=== PATIENT | female | born 1980 | race Two or more races ===

== ENCOUNTER 2021-08-31 01:13 | Inpatient (IN) | payer OTHER ==
[2021-08-31] VITALS (10 sets, daily range): BP systolic 104–136; BP diastolic 68–82
[~2021-08-31] VITALS: Ht 167.6 cm; Wt 53.1 kg
[2021-08-31] MEDS ORDERED: PANTOPRAZOLE 40 MG VIAL ONE (02:16)
[2021-08-31] MEDS ORDERED: ONDANSETRON HCL/PF 4 MG/2 ML VIAL ONE ×4 (02:17→13:29)
[2021-08-31] MEDS ORDERED: IV NS 0.9% 1,000 ML BAG IV ONE (02:30)
[2021-08-31] MEDS ORDERED: PANTOPRAZOLE 40 MG VIAL IV ONE (02:30)
[2021-08-31] MEDS ORDERED: ONDANSETRON HCL/PF 4 MG/2 ML VIAL IVP ONE (02:30)
--- NOTE | 2021-08-31 02:47 | NUR ---
PATIENT TAKEN TO CT
--- NOTE | 2021-08-31 02:57 | NUR ---
PATIENT RETURNED FROM CT
[2021-08-31 03:11] LABS: BASOPHILS % (AUTO) 0.1 % (0.0-2.0); EOSINOPHILS % (AUTO) 0.1 % (0.0-6.0); HEMATOCRIT 41 % (33-45); HEMOGLOBIN 13.8 g/dL (11.5-14.8); LYMPHOCYTES # (AUTO) 1.9 K/uL (0.8-4.8); LYMPHOCYTES % (AUTO) 8.5 % (20.0-44.0); MEAN CORPUSCULAR HGB CONC 33 g/dl (31.0-36.0); MEAN CORPUSCULAR VOLUME 97 fL (82-100); MONOCYTES # (AUTO) 1.6 K/uL (0.1-1.30); MONOCYTES % (AUTO) 7.4 % (2.0-12.0); NEUTROPHILS # (AUTO) 18.7 K/uL (1.8-8.9); NEUTROPHILS % (AUTO) 83.9 % (43.0-81.0); PLATELET COUNT (AUTO) 564 K/uL (150-450); RED BLOOD CELL COUNT(AUTO) 4.27 MIL/uL (4.0-5.2); WHITE BLOOD COUNT (AUTO) 22.2 K/uL (4.3-11.0)
[2021-08-31 03:26] LABS: ALBUMIN 4.7 g/dL (3.4-5.0); BILIRUBIN,DIRECT 0.3 mg/dL (0.0-0.2); BILIRUBIN,TOTAL 0.7 mg/dL (0.2-1.0); CALCIUM, SERUM 9.3 mg/dL (8.5-10.1); CREATININE 1.2 mg/dL (0.6-1.3); POTASSIUM 4.5 mmol/L (3.5-5.1)
[2021-08-31] MEDS ORDERED: INSULIN REGULAR, HUMAN 100 UNIT/ML 10 ML VIAL ONE (03:57)
[2021-08-31] MEDS ORDERED: MAG HYDROX/AL HYDROX/SIMETH 30 ML UDC ONE (03:57)
[2021-08-31] MEDS ORDERED: LIDOCAINE VISCOUS 2% UD 15 ML UDC ONE (03:57)
[2021-08-31] MEDS ORDERED: MAG HYDROX/AL HYDROX/SIMETH 30 ML UDC PO ONE (04:00)
[2021-08-31] MEDS ORDERED: LIDOCAINE VISCOUS 2% UD 15 ML UDC MM ONE (04:00)
[2021-08-31] MEDS ORDERED: ONDANSETRON HCL/PF 4 MG/2 ML VIAL IV ONE (04:00)
[2021-08-31] MEDS ORDERED: INSULIN REGULAR, HUMAN 100 UNIT/ML 10 ML VIAL IV ONE (04:00)
--- NOTE | 2021-08-31 04:07 | NUR ---
SPOKE WITH ROB BUTCHER [employer] FOR CLINICALS. PT IS APPROVED TO STAY.
[2021-08-31 04:28] LABS: ABG BASE EXCESS -23.9 mmol/L; ABG PCO2 18.8 mmHg (35.0-45.0); ABG PH 7.041 (7.350-7.450); ABG PO2 125.6 mmHg (75.0-100.0); COHb 0.3 % (0.5-1.5); MetHb 0.2 % (0.0-1.5); O2Hb 96.6 % (94.0-97.0); SITE, ABG Left Radial; VENT MODE, BG RA
[2021-08-31] MEDS ORDERED: INSULIN REGULAR, HUMAN 100 UNIT in IV NS 0.9% 99 ML IV PRN ×2 (04:30→05:00)
[2021-08-31] MEDS ORDERED: MAG HYDROX/AL HYDROX/SIMETH 30 ML UDC PO PRN (05:00)
[2021-08-31] MEDS ORDERED: MAGNESIUM HYDROXIDE 30 ML UDC PO PRN (05:00)
[2021-08-31] MEDS ORDERED: ONDANSETRON HCL/PF 4 MG/2 ML VIAL IVP PRN ×2 (05:00→13:30)
[2021-08-31] MEDS ORDERED: METOCLOPRAMIDE HCL 10 MG/2 ML VIAL IV STA (05:55)
[2021-08-31] MEDS ORDERED: METOCLOPRAMIDE HCL 10 MG/2 ML VIAL ONE (05:56)
[2021-08-31] MEDS ORDERED: METOCLOPRAMIDE HCL 10 MG/2 ML VIAL IV SCH (06:00)
--- NOTE | 2021-08-31 07:40 | NUR ---
PT SITTING IN BED, ACTIVE VOMITING. AAOX4, BREATHING EVEN AND UNLABORED. WILL ADMINISTER NAUSEA MEDICATION
[2021-08-31] MEDS ORDERED: PANTOPRAZOLE 40 MG TABLET.DR PO ONE (07:41)
[2021-08-31] MEDS: PANTOPRAZOLE 40 MG TABLET.DR PO SCH (07:43)
[2021-08-31] MEDS ORDERED: ACETAMINOPHEN 325 MG TABLET ONE (10:02)
[2021-08-31] MEDS: ACETAMINOPHEN 325 MG TABLET PO PRN (10:09)
--- NOTE | 2021-08-31 11:22 | NUR ---
PATIENT IN BED AWAKE, HOOKED TO MONITOR, VSS, HOOKED TO INUSLIN DRIP AT 5.7 U/HR. WILL CONTINUE TO MONITOR PATIENT.KEPT WARM AND COMFORTABLE.
--- NOTE | 2021-08-31 11:53 | NUR ---
RECEIVED AN ORDER OF BMP FROM DR YANEZ. THE ORDER IS READ BACK, VERIFIED. NOTED AND CARRIED OUT.
[2021-08-31] MEDS: IV D5/0.45 NACL 1,000 ML IV PRN ×3 (13:27→22:12)
--- NOTE | 2021-08-31 14:00 | NUR ---
REPORT GIVEN TO NURSE RODRIGUEZ
[2021-08-31 14:11] LABS: CALCIUM, SERUM 8.7 mg/dL (8.5-10.1); POTASSIUM 4.3 mmol/L (3.5-5.1)
--- NOTE | 2021-08-31 14:15 | NUR ---
THE PATIENT IS TRANSFERED TO ROOM 252 INSTABLE CONDITION AND PER POLICY.
--- NOTE | 2021-08-31 14:20 | NUR ---
RN/ICU-ADMITTED THIS 40 Y/O FEMALE FROM ER BY SELVIN, ACCOMPANIED BY ER STAFF. DX.DKA. ROUTINE ICU ADMISSION CARE INITIATED. AWAKE, ALERT, EXPRESSIVE OF NEEDS.ON INSULIN DRIP AT 2UNITS/HR PER PROTOCOL USING FORMULA BSX2/100. PT IS A FULL CODE. DENIES PAIN OR RESPIRATORY DISTRESS.
[2021-08-31] MEDS: BLOOD SUGAR DIAGNOSTIC 1 EACH STRIP IN SCH ×10 (15:10→23:08)
[2021-08-31] MEDS ORDERED: POTASSIUM PHOSPHATE MM 15 MMOL in IV NS 0.9% 250 ML IV SCH (16:00)
[2021-08-31] MEDS ORDERED: Sodium Phosphate 30 MMOL in IV NS 0.9% 250 ML IV SCH (17:00)
--- NOTE | 2021-08-31 19:00 | NUR ---
ARCHITECTURAL ADMINISTRATIVE ASSISTANT NOTE RECEIVED PATIENT IN BED RESTING ALERT ORIENTED X4 VERBALLY RESPONSIVE ON ROOM AIR O2:100% IV SITE IS ON LAC AND RAC INTACT PATENT ON INSULIN DRIP 2.2 UNIT/HR AND D51/2NS 125CC/HR AND SODIUM POTASSIUM 43 CC/HR,KEEP CALL LIGHT WITHIN REACH,BED IN LOW POSITION AND LOCKED,CONTINUE TO MONITOR.
[2021-08-31 19:13] LABS: CALCIUM, SERUM 8.6 mg/dL (8.5-10.1); POTASSIUM 4.2 mmol/L (3.5-5.1)
[2021-08-31 23:53] LABS: CALCIUM, SERUM 8.2 mg/dL (8.5-10.1); CREATININE 0.9 mg/dL (0.6-1.3); POTASSIUM 3.4 mmol/L (3.5-5.1)
[2021-09-01] VITALS (13 sets, daily range): BP systolic 125–147; BP diastolic 70–90
--- NOTE | 2021-09-01 | NUR ---
RN NOTE BLOOD SUGAR IS [address] CRUMP HE ORDERED HOLD INSULIN DRIP,BMP ONE HOUR LATER NOTED AND CARRIED OUT.
[2021-09-01] MEDS: BLOOD SUGAR DIAGNOSTIC 1 EACH STRIP IN SCH ×5 (00:01→12:00)
[2021-09-01] MEDS ORDERED: IV NS 0.9% 1,000 ML IV PRN (01:00)
[2021-09-01 02:10] LABS: CALCIUM, SERUM 8.2 mg/dL (8.5-10.1); CREATININE 0.8 mg/dL (0.6-1.3); POTASSIUM 3.4 mmol/L (3.5-5.1)
--- NOTE | 2021-09-01 02:35 | NUR ---
RN NOTE BMP DONE RESULTS REPORTED TO DR CRUMP HE ORDERED DIET CCHO, AND ACHS ACCUCHECK ON MILD INSULIN SLIDING SCALE NOTED AND CARRIED OUT.
[2021-09-01] MEDS ORDERED: DEXTROSE 50%-WATER 50 ML DISP.SYRIN IV PRN (03:00)
[2021-09-01] MEDS ORDERED: INSULIN REGULAR, HUMAN 100 UNIT/ML 3 ML VIAL SQ PRN (03:00)
[2021-09-01] MEDS: ACETAMINOPHEN 325 MG TABLET PO PRN (03:48)
[2021-09-01 05:29] LABS: EOSINOPHILS % (AUTO) 0.2 % (0.0-6.0); HEMATOCRIT 35 % (33-45); LYMPHOCYTES # (AUTO) 1.9 K/uL (0.8-4.8); LYMPHOCYTES % (AUTO) 9.2 % (20.0-44.0); MEAN CORPUSCULAR HGB CONC 34 g/dl (31.0-36.0); MEAN CORPUSCULAR VOLUME 91 fL (82-100); MONOCYTES # (AUTO) 1.8 K/uL (0.1-1.30); MONOCYTES % (AUTO) 8.6 % (2.0-12.0); NEUTROPHILS # (AUTO) 17.3 K/uL (1.8-8.9); PLATELET COUNT (AUTO) 455 K/uL (150-450); RED BLOOD CELL COUNT(AUTO) 3.87 MIL/uL (4.0-5.2); WHITE BLOOD COUNT (AUTO) 21.1 K/uL (4.3-11.0)
[2021-09-01 05:47] LABS: ALBUMIN 3.4 g/dL (3.4-5.0); CALCIUM, SERUM 8.4 mg/dL (8.5-10.1); CREATININE 0.9 mg/dL (0.6-1.3); MAGNESIUM 1.9 mg/dL (1.8-2.4); PHOSPHORUS 2.4 mg/dL (2.5-4.9); POTASSIUM 3.4 mmol/L (3.5-5.1); TOTAL PROTEIN, SERUM 6.9 g/dL (6.4-8.2)
--- NOTE | 2021-09-01 06:29 | NUR ---
RN NOTE PATIENT REMAINS ON ALERT ORIENTED X4 VERBALLY RESPONSIVE ON ROOM AIR O2:100% IV SITE IS ON RIGHT AC INTACT PATENT IV NS RUNNING 75CC/HR,OFF OF INSULIN DRIP,AMBULATORY CONTINET BOWEL/BLADDER,KEPT CLEAN AND DRY ALL THE TIME,ENDORSE NEXT COMING SHIFT FOR CONTINUATION OF CARE.
--- NOTE | 2021-09-01 07:00 | NUR ---
FAMILY SERVICES WORKER NOTE RECEIVED PATIENT ON BED, ALERT ORIENTED X4 VERBALLY RESPONSIVE ON ROOM AIR , O2 SAT WNL, IV SITE IS ON RAC INTACT , CLEAN AND DRY, NO DISTRESS NOTED, CALL LIGHT WITHIN EASY REACH,BED IN LOW POSITION AND LOCKED,CONTINUE TO MONITOR.
[2021-09-01] MEDS ORDERED: ATOR10TA PO (07:41)
[2021-09-01] MEDS ORDERED: LEVO125T8 PO (07:41)
[2021-09-01] MEDS ORDERED: CHOL200013 PO (07:41)
[2021-09-01] MEDS ORDERED: SERT50TA12 PO (07:41)
[2021-09-01] MEDS: PANTOPRAZOLE 40 MG TABLET.DR PO SCH (07:42)
[2021-09-01] MEDS ORDERED: POTASSIUM CHLORIDE 20 MEQ TAB.PRT.SR PO SCH (13:00)
--- NOTE | 2021-09-01 13:12 | NUR ---
RN NOTES DISCHARGE INSTRUCTION GIVEN TO PT , VERBALIZES UNDERSTANDING, IV SITE D/ESCOBAR, PT STATED WANTS TO GO HOME TED. REFUSED WHEEL CHAIR , LEFT THE FLOOR AMBULATORY IN STABLE CONDITION, ACCOMPANIED BY STAFF MEMBER.
== END 2021-09-01 14:24 | disposition home or self-care (01) | DRG 420 ==
LOC: ER 01:16 → TRANSITION 05:24 → ICU 13:51
DX: E11.10 Type 2 diabetes mellitus with ketoacidosis without coma (principal); D72.829 Elevated white blood cell count, unspecified; D75.839 Thrombocytosis, unspecified; Z20.822 Contact with and (suspected) exposure to COVID-19; F10.10 Alcohol abuse, uncomplicated
CPT/HCPCS: 36415; 36600; 80048-TC; 80053-TC; 80076-TC; 82010-TC; 82962-TC; 83690-TC; 83735-TC; 84100-TC; 85025-TC; 85730-TC; 86850-TC; 87081-TC; A9563; C9113; C9803; G0378; J1815; J2405; J2765; J3490; J7030; J7050

== ENCOUNTER 2025-05-14 16:58 | Inpatient (IN) | payer OTHER ==
[~2025-05-14] VITALS: Ht 170.2 cm; Wt 66.3 kg
[~2025-05-14 16:58] MED LIST: ATOR10TA PO; CHOL200013 PO; LEVO125T8 PO; SERT50TA12 PO
[2025-05-14] MEDS ORDERED: ONDANSETRON HCL/PF 4 MG/2 ML VIAL ONE ×2 (17:06→20:27)
[2025-05-14] MEDS: IV NS 0.9% 1,000 ML BAG IV ONE (17:14)
[2025-05-14] MEDS: ONDANSETRON HCL/PF 4 MG/2 ML VIAL IVP ONE ×2 (17:15→20:30)
[2025-05-14] MEDS: IV LR 1000 ML 1,000 ML BAG IV ONE (17:15)
[2025-05-14 17:21] LABS: PLATELET COUNT (AUTO) 571 K/uL (150-450); RED BLOOD CELL COUNT(AUTO) 4.32 MIL/uL (4.0-5.2); RED CELL DISTRIBUTION WIDTH 13.1 % (11.5-15.0); WHITE BLOOD COUNT (AUTO) 27.0 K/uL (4.3-11.0)
[2025-05-14 17:23] LABS: FRACTIONATED INSPIRED OXYGEN-V 28.0 %; SITE, VBG VBG - N/A; VBG BASE EXCESS -23.6 mmol/L (-2.0-3.0); VBG HCO3 5.0 mmol/L (22.0-29.0); VBG MetHb 0.2 % (0.5-1.5); VBG OXYGEN SATURATION 84.1 % (60.0-85.0); VBG PCO2 18.3 mmHg (38.0-54.0); VBG PH 7.055 (7.320-7.430); VBG PO2 57.3 mmHg (23.0-48.0); VBG TOTAL HEMOGLOBIN 14.7 G/dL (12.0-16.0)
[2025-05-14 17:33] LABS: ASPARTATE AMINOTRANSFERASE 26.0 U/L (15-37); CALCIUM, SERUM 9.0 mg/dL (8.5-10.1); CREATININE 1.2 mg/dL (0.6-1.3); SODIUM SERUM 136.0 mmol/L (136-145); TOTAL PROTEIN, SERUM 9.1 g/dL (6.4-8.2); UREA NITROGEN, BLOOD 41.0 mg/dL (7-18)
[2025-05-14 17:37] LABS: ACETONE, SERUM MODERATE (NEGATIVE)
[2025-05-14 17:38] LABS: PREGNANCY TEST SERUM QUAN 0 mIU/mL (0-6)
[2025-05-14] MEDS ORDERED: INSU100I30 SQ (18:19)
[2025-05-14] MEDS ORDERED: ATOR40TA PO (18:19)
[2025-05-14] MEDS ORDERED: ESCI20TA PO (18:19)
[2025-05-14] MEDS ORDERED: INSU100V8 SQ (18:19)
[2025-05-14] MEDS: IV PREMIX NS +20MEQ KCL 1 L IV PRN (18:22)
[2025-05-14] MEDS: INSULIN REGULAR, HUMAN 100 UNITS in IV NS 0.9% 100 ML IV PRN (18:22)
[2025-05-14 18:50] LABS: CALCIUM, SERUM 8.7 mg/dL (8.5-10.1); CREATININE 1.1 mg/dL (0.6-1.3); PHOSPHORUS 4.8 mg/dL (2.5-4.9); SODIUM SERUM 136.0 mmol/L (136-145); UREA NITROGEN, BLOOD 41.0 mg/dL (7-18)
[2025-05-14] MEDS ORDERED: INSULIN REGULAR, HUMAN 100 UNIT in IV NS 0.9% 99 ML IV PRN (19:00)
[2025-05-14] MEDS ORDERED: Z GUARD REMEDY 4 OZ OINT TP PRN (19:00)
[2025-05-14 19:36] LABS: EOSINOPHILS % (MANUAL) 1 % (0-4); LYMPHOCYTES % (MANUAL) 5 % (16-48); MONOCYTES % (MANUAL) 7 % (0-11.0); NEUTROPHILS % (MANUAL) 87 (42-76); PLATELET ESTIMATE ADEQU
[2025-05-14 19:48] LABS: APPEARANCE,URINE CLEAR (CLEAR); BLOOD, URINE TRACE-INTA Ery/uL (NEGATIVE); LEUKOCYTE ESTERASE ,URINE NEGATIVE (NEGATIVE); NITRITE, URINE NEGATIVE (NEGATIVE); UGLUCOSE 3+ mg/dL (NEGATIVE)
[2025-05-14 20:03] LABS: ADD URINE CULTURE NO
[2025-05-14 20:16] LABS: CALCIUM, SERUM 9.1 mg/dL (8.5-10.1); CREATININE 1.3 mg/dL (0.6-1.3); SODIUM SERUM 138.0 mmol/L (136-145); UREA NITROGEN, BLOOD 23.0 mg/dL (7-18)
[2025-05-14 20:20] LABS: PHOSPHORUS 3.7 mg/dL (2.5-4.9)
[2025-05-14] MEDS ORDERED: HYDROMORPHONE 1 MG/1 ML DISP.SYRIN ONE (20:27)
[2025-05-14] MEDS: HYDROMORPHONE 1 MG/1 ML DISP.SYRIN IV ONE (20:30)
[2025-05-14] MEDS ORDERED: SODIUM BICARBONATE SYR 50 MEQ/50 ML DISP.SYRIN ONE (20:33)
[2025-05-14] MEDS: IV NS 0.9% 1,000 ML IV ONE (20:36)
[2025-05-14] MEDS: SODIUM BICARBONATE SYR 50 MEQ/50 ML DISP.SYRIN IV ONE (20:41)
[2025-05-14] MEDS: IV 1/2NS 1000 ML 1,000 ML IV PRN (21:08)
[2025-05-14 22:04] LABS: CALCIUM, SERUM 7.9 mg/dL (8.5-10.1); CREATININE 1.2 mg/dL (0.6-1.3); SODIUM SERUM 141.0 mmol/L (136-145); UREA NITROGEN, BLOOD 19.0 mg/dL (7-18)
[2025-05-14 22:08] LABS: PHOSPHORUS 2.1 mg/dL (2.5-4.9)
[2025-05-14 22:19] VITALS: BP 153/85; O2SAT 99
[2025-05-14] MEDS: ONDANSETRON HCL/PF 4 MG/2 ML VIAL IVP PRN (22:42)
[2025-05-14] MEDS: INSULIN REGULAR, HUMAN 100 UNIT in IV NS 0.9% 99 ML IV PRN (22:50)
[2025-05-14] MEDS: METRONIDAZOLE 500MG/ NS 100ML 500 MG in PREMIX 1 EA IV SCH (22:58)
[2025-05-14 23:00] VITALS: BP 159/79; O2SAT 99
[2025-05-14] MEDS: METRONIDAZOLE 500MG/ NS 100ML 100 ML IV ONE (23:18)
[2025-05-14] MEDS: CEFTRIAXONE 1GM BAG (ER ONLY) 100 ML IV ONE (23:33)
[2025-05-14] MEDS: BLOOD SUGAR DIAGNOSTIC 1 EACH STRIP IN SCH (23:34)
[2025-05-15] VITALS (26 sets, daily range): BP systolic 101–163; BP diastolic 61–92; TEMP 97.7–99.2; O2SAT 95–100
[2025-05-15] MEDS: CEFTRIAXONE 2 G in IV D5W 100 ML IV SCH (00:24)
[2025-05-15 02:19] LABS: CALCIUM, SERUM 8.0 mg/dL (8.5-10.1); CREATININE 1.0 mg/dL (0.6-1.3); SODIUM SERUM 143.0 mmol/L (136-145); UREA NITROGEN, BLOOD 15.0 mg/dL (7-18)
[2025-05-15 02:55] LABS: PHOSPHORUS 1.9 mg/dL (2.5-4.9)
[2025-05-15] MEDS ORDERED: METRONIDAZOLE 500MG/ NS 100ML 500 MG in PREMIX 1 EA IV SCH (07:00)
[2025-05-15] MEDS ORDERED: LEVOTHYROXINE INJ 500 MCG VIAL IV SCH (07:30)
[2025-05-15 07:32] LABS: PLATELET COUNT (AUTO) 417 K/uL (150-450); RED BLOOD CELL COUNT(AUTO) 3.40 MIL/uL (4.0-5.2); RED CELL DISTRIBUTION WIDTH 12.9 % (11.5-15.0); WHITE BLOOD COUNT (AUTO) 20.6 K/uL (4.3-11.0)
[2025-05-15 07:42] LABS: CALCIUM, SERUM 7.7 mg/dL (8.5-10.1); CREATININE 1.0 mg/dL (0.6-1.3); PHOSPHORUS 1.7 mg/dL (2.5-4.9); SODIUM SERUM 134.0 mmol/L (136-145); UREA NITROGEN, BLOOD 11.0 mg/dL (7-18)
[2025-05-15] MEDS: METRONIDAZOLE 500MG/ NS 100ML 500 MG in PREMIX 1 EA IV SCH (08:29)
[2025-05-15] MEDS: PANTOPRAZOLE 40 MG VIAL IV SCH (08:39)
[2025-05-15] MEDS: LEVOTHYROXINE INJ 100 MCG VIAL IV SCH (08:39)
[2025-05-15] MEDS: POTASSIUM CHLORIDE 10 MEQ/50 ML PREMIXED IVPB FOR PERIPHERAL LINE IV ONE (08:53)
[2025-05-15] MEDS ORDERED: Sodium Phosphate 15 MMOL in IV NS 0.9% 245 ML IV SCH (09:00)
[2025-05-15] MEDS: ACETAMINOPHEN 325 MG TABLET PO PRN (09:36)
[2025-05-15] MEDS ORDERED: POTASSIUM PHOSPHATE MM 15 MMOL in IV NS 0.9% 250 ML IV SCH ×2 (10:00→19:00)
[2025-05-15 10:07] LABS: CALCIUM, SERUM 7.8 mg/dL (8.5-10.1); CREATININE 0.9 mg/dL (0.6-1.3); SODIUM SERUM 133.0 mmol/L (136-145); UREA NITROGEN, BLOOD 10.0 mg/dL (7-18)
[2025-05-15] MEDS: Potassium Chloride 20 MEQ in IV D5/0.45 NACL 1,000 ML IV PRN (11:03)
[2025-05-15] MEDS: POTASSIUM PHOSPHATE MM 7.5 MMOL in IV NS 0.9% 100 ML IV SCH ×2 (11:37→20:29)
[2025-05-15 11:57] LABS: IRON, SERUM 55 ug/dl (50-175)
[2025-05-15] MEDS ORDERED: MORPHINE SULFATE INJ 2 MG/ML DISP.SYRIN IV PRN (15:00)
[2025-05-15 15:40] LABS: CALCIUM, SERUM 8.3 mg/dL (8.5-10.1); CREATININE 0.9 mg/dL (0.6-1.3); SODIUM SERUM 134.0 mmol/L (136-145); UREA NITROGEN, BLOOD 7.0 mg/dL (7-18)
[2025-05-15 15:46] LABS: PHOSPHORUS 1.6 mg/dL (2.5-4.9)
[2025-05-15] MEDS: ASPIRIN EC 81 MG TABLET.DR PO SCH (16:32)
[2025-05-15] MEDS: HYDROMORPHONE 1 MG/1 ML DISP.SYRIN IV PRN (16:33)
[2025-05-15 17:52] LABS: CALCIUM, SERUM 7.9 mg/dL (8.5-10.1); CREATININE 0.9 mg/dL (0.6-1.3); SODIUM SERUM 135.0 mmol/L (136-145); UREA NITROGEN, BLOOD 6.0 mg/dL (7-18)
[2025-05-15 17:57] LABS: PHOSPHORUS 1.8 mg/dL (2.5-4.9)
[2025-05-15] MEDS: Potassium Chloride 20 MEQ in IV D5/0.45 NACL 1,000 ML IV SCH (18:51)
[2025-05-15 22:33] LABS: CALCIUM, SERUM 7.9 mg/dL (8.5-10.1); CREATININE 1.0 mg/dL (0.6-1.3); SODIUM SERUM 134.0 mmol/L (136-145); UREA NITROGEN, BLOOD 4.0 mg/dL (7-18)
[2025-05-15 22:49] LABS: PHOSPHORUS 1.5 mg/dL (2.5-4.9)
[2025-05-16] VITALS (27 sets, daily range): BP systolic 117–170; BP diastolic 68–122; TEMP 97.3–98.8; O2SAT 95–100
[2025-05-16 02:37] LABS: CALCIUM, SERUM 8.0 mg/dL (8.5-10.1); CREATININE 0.8 mg/dL (0.6-1.3); PHOSPHORUS 1.9 mg/dL (2.5-4.9); SODIUM SERUM 135.0 mmol/L (136-145); UREA NITROGEN, BLOOD 3.0 mg/dL (7-18)
[2025-05-16 08:26] LABS: CALCIUM, SERUM 8.2 mg/dL (8.5-10.1); CREATININE 0.8 mg/dL (0.6-1.3); PHOSPHORUS 1.4 mg/dL (2.5-4.9); SODIUM SERUM 136.0 mmol/L (136-145); UREA NITROGEN, BLOOD 2.0 mg/dL (7-18)
[2025-05-16] MEDS: NEUTRA PHOS 1 POWD.PACKET PO SCH (08:47)
[2025-05-16] MEDS ORDERED: DEXTROSE 50%-WATER 50 ML DISP.SYRIN IV PRN (09:00)
[2025-05-16] MEDS ORDERED: *INSULIN REGULAR(HUMULIN R)HUM 100 UNIT/ML VIAL SQ PRN (09:00)
[2025-05-16] MEDS ORDERED: POTASSIUM CHLORIDE 20 MEQ TAB.PRT.SR PO ONE (09:00)
[2025-05-16] MEDS ORDERED: POTASSIUM PHOSPHATE MM 15 MMOL in IV NS 0.9% 250 ML IV SCH (09:00)
[2025-05-16 09:08] LABS: PLATELET COUNT (AUTO) 413 K/uL (150-450); RED BLOOD CELL COUNT(AUTO) 3.71 MIL/uL (4.0-5.2); RED CELL DISTRIBUTION WIDTH 13.1 % (11.5-15.0); WHITE BLOOD COUNT (AUTO) 13.0 K/uL (4.3-11.0)
[2025-05-16] MEDS: BLOOD SUGAR DIAGNOSTIC 1 EACH STRIP IN SCH (09:15)
[2025-05-16] MEDS: POTASSIUM CHLORIDE 20 MEQ TAB.PRT.SR PO SCH (09:16)
[2025-05-16 09:38] LABS: LDL 59 mg/dL (0-99)
[2025-05-16] MEDS: INSULIN REGULAR, HUMAN 100 UNIT/ML 3 ML VIAL SQ PRN (15:40)
[2025-05-16] MEDS: INSULIN GLARGINE, 100 UNIT/ML CARTRIDGE SQ SCH (21:29)
[2025-05-16] MEDS: METOCLOPRAMIDE HCL 10 MG/2 ML VIAL IV ONE (23:51)
[2025-05-17 05:00] VITALS: BP 148/100; TEMP 98.2; O2SAT 100
[2025-05-17 07:08] LABS: CALCIUM, SERUM 8.7 mg/dL (8.5-10.1); CREATININE 0.8 mg/dL (0.6-1.3); SODIUM SERUM 139.0 mmol/L (136-145); UREA NITROGEN, BLOOD 4.0 mg/dL (7-18)
[2025-05-17 08:00] VITALS: BP 129/91; TEMP 98.1; O2SAT 99
[2025-05-17] MEDS: PANTOPRAZOLE 40 MG TABLET.DR PO SCH (08:35)
[2025-05-17] MEDS ORDERED: METR500T PO (08:35)
[2025-05-17] MEDS ORDERED: CIPR-262 PO (08:35)
[2025-05-17] MEDS: METOCLOPRAMIDE HCL 10 MG TABLET PO ONE (09:46)
[2025-05-18] MEDS ORDERED: LEVOTHYROXINE SODIUM 50 MCG TABLET PO SCH (07:30)
== END 2025-05-17 11:14 | disposition home or self-care (01) | DRG 420 ==
LOC: ER 17:08 → ICU 21:06 → TELE 05-16 21:53 → MED 05-17 08:49
PROVIDERS: ADMIT Internal Medicine; ATTEND Internal Medicine
DX: E10.10 Type 1 diabetes mellitus with ketoacidosis without coma (principal); A04.9 Bacterial intestinal infection, unspecified; I21.A1 Myocardial infarction type 2; N17.9 Acute kidney failure, unspecified; Z79.4 Long term (current) use of insulin; D64.9 Anemia, unspecified; R00.0 Tachycardia, unspecified; R07.89 Other chest pain
CPT/HCPCS: 36415; 71045-TC; 80048-TC; 80061-TC; 80076-TC; 81001; 82010-TC; 82728-TC; 82803-TC; 82962-TC; 83540-TC; 83690-TC; 83735-TC; 84100-TC; 84484-TC; 84702-TC; 85025-TC; 85027-TC; 87081-TC; A4216; A4223; A9563; G0378; J0696; J1171; J1815; J2405; J2470; J2765; J3480; J3490; J7030; J7050; J7060; J7120; J8597

== ENCOUNTER 2025-06-29 13:17 | Inpatient (IN) | payer OTHER ==
[2025-06-29] VITALS (10 sets, daily range): BP systolic 136–173; BP diastolic 68–98; TEMP 98.1–98.7; O2SAT 98–100
[~2025-06-29] VITALS: Ht 167.6 cm; Wt 63.0 kg
[~2025-06-29 13:17] MED LIST changes: -ATOR10TA PO; +ATOR40TA PO; -CHOL200013 PO; +CIPR-262 PO; +ESCI20TA PO; +INSU100I30 SQ; +INSU100V8 SQ; +METR500T PO; -SERT50TA12 PO
[2025-06-29 14:11] LABS: PLATELET COUNT (AUTO) 538 K/uL (150-450); RED BLOOD CELL COUNT(AUTO) 4.49 MIL/uL (4.0-5.2); RED CELL DISTRIBUTION WIDTH 12.8 % (11.5-15.0); WHITE BLOOD COUNT (AUTO) 14.6 K/uL (4.3-11.0)
[2025-06-29 14:18] LABS: CALCIUM, SERUM 9.5 mg/dL (8.5-10.1); CREATININE 0.9 mg/dL (0.6-1.3); SODIUM SERUM 136 mmol/L (136-145); UREA NITROGEN, BLOOD 20 mg/dL (7-18)
[2025-06-29] MEDS: KETOROLAC TROMETHAMINE 15 MG/ML VIAL IV ONE (14:32)
[2025-06-29] MEDS: IV NS 0.9% 1,000 ML BAG IV ONE (14:36)
[2025-06-29] MEDS ORDERED: ONDANSETRON HCL/PF 4 MG/2 ML VIAL ONE (14:40)
[2025-06-29] MEDS: ONDANSETRON HCL/PF 4 MG/2 ML VIAL IV ONE (14:42)
[2025-06-29 14:57] LABS: FRACTIONATED INSPIRED OXYGEN-V 21.0 %; SITE, VBG VBG - N/A; VBG BASE EXCESS -16.0 mmol/L (-2.0-3.0); VBG HCO3 9.1 mmol/L (22.0-29.0); VBG MetHb 0.3 % (0.5-1.5); VBG OXYGEN SATURATION 57.7 % (60.0-85.0); VBG PCO2 20.8 mmHg (38.0-54.0); VBG PH 7.258 (7.320-7.430); VBG PO2 37.0 mmHg (23.0-48.0); VBG TOTAL HEMOGLOBIN 12.3 G/dL (12.0-16.0)
[2025-06-29] MEDS ORDERED: INSULIN REGULAR, HUMAN 100 UNIT/ML 10 ML VIAL ONE (15:16)
[2025-06-29] MEDS: INSULIN REGULAR, HUMAN 100 UNIT/ML 10 ML VIAL IV ONE (15:21)
[2025-06-29] MEDS: BLOOD SUGAR DIAGNOSTIC 1 EACH STRIP IN SCH (15:47)
[2025-06-29] MEDS: INSULIN REGULAR, HUMAN 100 UNITS in IV NS 0.9% 100 ML IV PRN (15:55)
[2025-06-29] MEDS ORDERED: MAG HYDROX/AL HYDROX/SIMETH 30 ML UDC PO PRN (16:00)
[2025-06-29] MEDS ORDERED: ZOLPIDEM TARTRATE 5 MG TABLET PO PRN (16:00)
[2025-06-29] MEDS ORDERED: IV NS 0.9% 1,000 ML IV PRN (16:00)
[2025-06-29] MEDS ORDERED: ACETAMINOPHEN 325 MG TABLET PO PRN (16:00)
[2025-06-29] MEDS ORDERED: Z GUARD REMEDY 4 OZ OINT TP PRN (16:00)
[2025-06-29] MEDS ORDERED: ONDANSETRON HCL/PF 4 MG/2 ML VIAL IVP PRN (16:00)
[2025-06-29] MEDS ORDERED: MAGNESIUM HYDROXIDE 30 ML UDC PO PRN (16:00)
[2025-06-29] MEDS: IV PREMIX NS +20MEQ KCL 1 L IV PRN (16:00)
[2025-06-29] MEDS: ENOXAPARIN SODIUM 40 MG/0.4 ML DISP.SYRIN SQ SCH (17:30)
[2025-06-29] MEDS: INSULIN REGULAR, HUMAN 100 UNIT in IV NS 0.9% 99 ML IV PRN (18:16)
[2025-06-29] MEDS: Potassium Chloride 20 MEQ in IV D5/0.45 NACL 1,000 ML IV SCH (18:16)
[2025-06-29 19:42] LABS: CALCIUM, SERUM 8.7 mg/dL (8.5-10.1); CREATININE 0.8 mg/dL (0.6-1.3); PHOSPHORUS 2.2 mg/dL (2.5-4.9); SODIUM SERUM 136.0 mmol/L (136-145); UREA NITROGEN, BLOOD 18.0 mg/dL (7-18)
[2025-06-29] MEDS: METOCLOPRAMIDE HCL 10 MG/2 ML VIAL IV SCH (19:43)
[2025-06-29] MEDS: hydrALAZINE HCL IV 20 MG VIAL IV PRN (19:44)
[2025-06-29] MEDS: MORPHINE SULFATE INJ 2 MG/ML DISP.SYRIN IV ONE (20:49)
[2025-06-30] VITALS (24 sets, daily range): BP systolic 108–173; BP diastolic 55–91; TEMP 98–98.6; O2SAT 97–100
[2025-06-30 00:21] LABS: CALCIUM, SERUM 8.6 mg/dL (8.5-10.1); CREATININE 0.9 mg/dL (0.6-1.3); SODIUM SERUM 136.0 mmol/L (136-145); UREA NITROGEN, BLOOD 15.0 mg/dL (7-18)
[2025-06-30 04:40] LABS: PLATELET COUNT (AUTO) 501 K/uL (150-450); RED BLOOD CELL COUNT(AUTO) 4.09 MIL/uL (4.0-5.2); RED CELL DISTRIBUTION WIDTH 12.4 % (11.5-15.0); WHITE BLOOD COUNT (AUTO) 16.7 K/uL (4.3-11.0)
[2025-06-30 04:50] LABS: CALCIUM, SERUM 8.6 mg/dL (8.5-10.1); CREATININE 0.8 mg/dL (0.6-1.3); PHOSPHORUS 1.5 mg/dL (2.5-4.9); SODIUM SERUM 134.0 mmol/L (136-145); UREA NITROGEN, BLOOD 15.0 mg/dL (7-18)
[2025-06-30] MEDS: LEVOTHYROXINE SODIUM 125 MCG TABLET PO SCH (08:07)
[2025-06-30] MEDS: PANTOPRAZOLE 40 MG VIAL IV SCH (08:07)
[2025-06-30] MEDS: ESCITALOPRAM OXALATE (10 MG) 10 MG TABLET PO SCH (08:07)
[2025-06-30 10:10] LABS: CALCIUM, SERUM 8.3 mg/dL (8.5-10.1); CREATININE 0.8 mg/dL (0.6-1.3); SODIUM SERUM 133.0 mmol/L (136-145); UREA NITROGEN, BLOOD 11.0 mg/dL (7-18)
[2025-06-30 13:28] LABS: CALCIUM, SERUM 8.9 mg/dL (8.5-10.1); CREATININE 0.8 mg/dL (0.6-1.3); SODIUM SERUM 131.0 mmol/L (136-145); UREA NITROGEN, BLOOD 7.0 mg/dL (7-18)
[2025-06-30] MEDS ORDERED: DEXTROSE 50%-WATER 50 ML DISP.SYRIN IV PRN (15:00)
[2025-06-30] MEDS: K PHOS NEUTRAL 250 MG TABLET PO ONE (16:30)
[2025-06-30] MEDS: INSULIN REGULAR, HUMAN 100 UNIT/ML 3 ML VIAL SQ PRN (16:55)
[2025-06-30] MEDS: BLOOD SUGAR DIAGNOSTIC 1 EACH STRIP IN SCH (17:03)
[2025-06-30] MEDS ORDERED: BLOOD SUGAR DIAGNOSTIC 1 EACH STRIP VI SCH (17:30)
[2025-06-30] MEDS: *INSULIN REGULAR(HUMULIN R)HUM 100 UNIT/ML VIAL SQ PRN (22:06)
[2025-06-30] MEDS: INSULIN GLARGINE, 100 UNIT/ML CARTRIDGE SQ SCH (22:07)
[2025-07-01 07:20] LABS: PLATELET COUNT (AUTO) 506 K/uL (150-450); RED BLOOD CELL COUNT(AUTO) 4.41 MIL/uL (4.0-5.2); RED CELL DISTRIBUTION WIDTH 12.7 % (11.5-15.0); WHITE BLOOD COUNT (AUTO) 10.6 K/uL (4.3-11.0)
[2025-07-01 07:29] LABS: CALCIUM, SERUM 8.8 mg/dL (8.5-10.1); CREATININE 0.9 mg/dL (0.6-1.3); SODIUM SERUM 134.0 mmol/L (136-145); UREA NITROGEN, BLOOD 6.0 mg/dL (7-18)
[2025-07-01 08:00] VITALS: BP 128/84; TEMP 98.1; O2SAT 97
[2025-07-01] MEDS: PANTOPRAZOLE 40 MG TABLET.DR PO SCH (08:39)
[2025-07-01] MEDS: POTASSIUM CHLORIDE 20 MEQ TAB.PRT.SR PO ONE (09:21)
== END 2025-07-01 10:40 | disposition home or self-care (01) | DRG 420 ==
LOC: ER 13:33 → ICU 16:03 → MED 06-30 17:49
PROVIDERS: ADMIT Student in an Organized Health Care Education/Training Program; ATTEND Internal Medicine
DX: E11.10 Type 2 diabetes mellitus with ketoacidosis without coma (principal); D75.839 Thrombocytosis, unspecified; E03.9 Hypothyroidism, unspecified; R79.89 Other specified abnormal findings of blood chemistry; Z79.4 Long term (current) use of insulin
CPT/HCPCS: 36415; 71045-TC; 80048-TC; 82010-TC; 82803-TC; 82962-TC; 83735-TC; 84100-TC; 84443-TC; 84484-TC; 85025-TC; 87081-TC; A4223; G0378; J0360; J1650; J1815; J1885; J2270; J2405; J2470; J2765; J3480; J3490; J7030